=== PATIENT | female | born 1970 | race Caucasian/White ===

== ENCOUNTER 2024-03-30 10:23 | Outpatient (OUT) | payer BC, SELFPAY ==
--- NOTE | 2024-03-30 10:34 | MM_ITS ---
Patient Name: MARIBELL RAMIREZ MR#: [id number] : 1970 Exam Date: 03/30/2024 Ordering Doctor: BHAVANA CARR . RADIOLOGY REPORT PROCEDURE: MM TOMOSYNTHESIS SCREENING BI COMPARISON: MG MAMM SCREEN 3D ERIC CAD, 03/20/2022. MG MAMM SCREEN 3D ERIC CAD, 03/23/2023. INDICATIONS: Screening Calculator Name NCI Breast Cancer Risk Assessment Tool 5 Year Breast Cancer Risk 2.50% Lifetime Breast Cancer Risk 17.60% Personal Breast Cancer No Personal Ovarian Cancer No Treatments None Family Cancers Mother with breast cancer at age 57; Grandmother-maternal with breast cancer at age ~60. LOCATION: [facility] BREAST COMPOSITION: The breasts are heterogeneously dense,which may obscure small masses. FINDINGS: DIAGNOSTIC CATEGORY 2--BENIGN FINDING. NO CHANGE FROM COMPARISON. Scattered benign-appearing calcifications are present. Scattered benign-appearing lymph nodes are present. RIGHT BREAST: No significant suspicious finding. LEFT BREAST: No significant suspicious finding. RECOMMENDATIONS: ROUTINE MAMMOGRAM AND CLINICAL EVALUATION IN 12 MONTHS. PLEASE NOTE: A NORMAL MAMMOGRAM DOES NOT EXCLUDE THE POSSIBILITY OF BREAST CANCER. A CLINICALLY SUSPICIOUS PALPABLE LUMP SHOULD BE BIOPSIED. Dictated by: Dakota Lin MD on 03/30/2024 at 13:07 Approved by: Daokta Lin MD on 03/30/2024 at 13:08
== END 2024-03-30 10:24 | disposition home or self-care (01) ==
LOC: MAMMO 10:26
PROVIDERS: PCP Nurse Practitioner; Visit Provider Nurse Practitioner
DX: Z12.31 Encounter for screening mammogram for malignant neoplasm of breast (principal); Z80.3 Family history of malignant neoplasm of breast
CPT/HCPCS: 77063; 77067

== ENCOUNTER 2025-05-04 13:06 | Outpatient (OUT) | payer OTHER, SELFPAY ==
--- NOTE | 2025-05-04 | MM_ITS ---
Patient Name: MARIBELL RAMIREZ MR#: [id number] : 1970 Exam Date: 05/04/2025 Ordering Doctor: BHAVANA CARR . RADIOLOGY REPORT PROCEDURE: MM TOMOSYNTHESIS SCREENING BI COMPARISON: MM TOMOSYNTHESIS SCREENING BI, 03/30/2024. MG MAMM SCREEN 3D ERIC CAD, 03/23/2023. MG MAMM SCREEN 3D ERIC CAD, 03/20/2022. MG MAMM ERIC SCRN W CAD DIG, 01/31/2016. INDICATIONS: Screening Calculator Name NCI Breast Cancer Risk Assessment Tool 5 Year Breast Cancer Risk 2.60% Lifetime Breast Cancer Risk 17.30% Personal Breast Cancer No Personal Ovarian Cancer No Treatments None Family Cancers Mother with breast cancer at age 57; Grandmother-maternal with breast cancer at age ~60. LOCATION: [facility] BREAST COMPOSITION: There are scattered areas of fibroglandular density. FINDINGS: DIAGNOSTIC CATEGORY 1--NEGATIVE. RIGHT BREAST: No significant suspicious finding. LEFT BREAST: No significant suspicious finding. RECOMMENDATIONS: ROUTINE MAMMOGRAM AND CLINICAL EVALUATION IN 12 MONTHS. PLEASE NOTE: A NORMAL MAMMOGRAM DOES NOT EXCLUDE THE POSSIBILITY OF BREAST CANCER. A CLINICALLY SUSPICIOUS PALPABLE LUMP SHOULD BE BIOPSIED. Dictated by: Cheikh Alonzo DO on 05/04/2025 at 15:42 Approved by: Cheikh Alonzo DO on 05/04/2025 at 15:43
--- OUTSIDE RECORDS SUMMARY | 2025-05-04 13:21 | XMS_ITS | CCD ---
Author Organization [facility] CliniSyri Care Team Providers Care Patient Access Manager Name Role Phone ODALIS, DR PANDA Admitting Unavailable KARASIK, DR PANDA Attending Unavailable MATTHEWS, DR SWETHA Mustafa Primary Care Unavailable KARASIK, DR PANDA Consulting Unavailable MATTHEWS, DR SWETHA Mustafa Admitting Unavailable MATTHEWS, DR SWETHA Mustafa Attending Unavailable MATTHEWS, DR SWETHA Mustafa Primary Care Unavailable MATTHEWS, DR SWETHA Mustafa Consulting Unavailable KARASIK, DR PANDA Admitting Unavailable KARASIK, DR PANDA Attending Unavailable MATTHEWS, DR SWETHA Mustafa Primary Care Unavailable KARASIK, DR PANDA Consulting Unavailable WEST, DR LLOYD Wahl Consulting Unavailable ZIEBER, DR TREVOR Erwin Consulting Unavailable MATTHEWS, SWETHA Mustafa Primary Care Physician Lloyd Watts Attending Unavailable HyLloyd maldonado Admitting Unavailable MatthewsSwetha Primary Care Unavailable Heidi, Dixie Roy Primary Care Physician [phone] Heidi, Dixie Roy Attending Unavailable Heidi, Dixie L Admitting Unavailable Heidi, Dixie L Admitting Unavailable Heidi, Dixie Roy Attending Unavailable Heidi, Dixie Roy Attending Unavailable Heidi, Dixie L Admitting Unavailable Heidi, Dixie Roy Attending Unavailable Heidi, Dixie L Attending Unavailable Heidi, Dixie L Attending Unavailable Heidi, Dixie L Admitting Unavailable Heidi, Dixie L Attending Unavailable Heidi, Dixie L Attending Unavailable Heidi, SEWING MACHINE REPAIRER Dixie L Admitting Unavailable Heidi, SEWING MACHINE REPAIRER Dixie L Attending Unavailable Heidi, SEWING MACHINE REPAIRER Dixie L Admitting Unavailable Heidi, SEWING MACHINE REPAIRER Dixie L Attending Unavailable Heidi, SEWING MACHINE REPAIRER Dixie L Attending Unavailable Allergies Allergy Classification Reported Allergen(s) Allergy Type Date of Onset Reaction(s) Facility (5 sources) No Known Medication Allergies; Translations: [No Known Medication Allergies] Propensity to adverse reactions (disorder) [facility] Repository Medications Current Medications Medication Drug Class(es) Dates Sig (Normalized) Sig (Original) black cohosh extract 40 mg oral capsule (2 sources) Start: 03-01-2019 take 40 mg by mouth once daily Black Cohosh Black Cohosh, 40 mg, Oral, Daily Start Date: 03/01/19 Status: Ordered famotidine 40 mg oral tablet (2 sources) Histamine-2 Receptor Antagonist Start: 02-10-2023 take 1 tablet by mouth once daily famotidine 40 mg Tab 40 mg = 1 tab(s), Oral, Daily, Refills(s) 0 Start Date: 02/10/23 Status: Ordered folic acid 1 mg oral tablet (1 source) Start: 07-12-2024 take 1 tablet by mouth once daily folic acid 1 mg Tab 1 mg = 1 tab(s), Oral, Daily, # 90 tab(s), Refills(s) 0, Pharmacy: [facility], 158.5, cm, 07/05/24 11:30:00 EDT, Height/Length Dosing, 71.7, kg, 07/05/24 11:30:00 EDT, Weight Dosing Start Date: 07/12/24 Status: Ordered levothyroxine sodium 0.088 mg oral tablet (7 sources) l-Thyroxine Start: 01-03-2025 take 1 tablet by mouth once daily levothyroxine 88 mcg (0.088 mg) Tab See Instructions, TAKE 1 TABLET BY MOUTH EVERY DAY, # 90 tab(s), Refills(s) 3, Pharmacy: [facility], 158, cm, 10/11/24 11:25:00 EST, Height/Length Dosing, 65.6, kg, 10/11/24 11:25:00 EST, Weight Dosing Start Date: 01/03/25 Status: Ordered Quantity: 90.0 Unit: tab(s) Repeat number: 4 Start: 10-10-2024 take 1 tablet by bony once daily levothyroxine 88 mcg (0.088 mg) Tab See Instructions, TAKE 1 TABLET BY MOUTH EVERY DAY, # 90 tab(s), Refills(s) 0, Pharmacy: [facility], 158.5, cm, 08/02/24 15:35:00 EDT, Height/Length Dosing, 69.3, kg, 08/02/24 15:35:00 EDT, Weight Dosing Start Date: 10/10/24 Status: Ordered Start: 09-28-2023 End: 09-22-2024 take 1 capsule by mouth once daily levothyroxine 88 mcg (0.088 mg) oral capsule 88 mcg = 1 cap(s), Oral, Daily, X 90 day(s), # 90 cap(s), Refills(s) 3, Pharmacy: [facility], 158.5, cm, 02/12/23 13:49:00 EDT, Height/Length Dosing, 71.2, kg, 02/12/23 13:49:00 EDT, Weight Dosing Start Date: 09/28/23 Stop Date: 09/22/24 Status: Ordered Start: 02-16-2023 take 1 capsule by mo [facility] once daily levothyroxine 88 mcg (0.088 mg) oral capsule 88 mcg = 1 cap(s), Oral, Daily, # 30 cap(s), Refills(s) 1, Pharmacy: [facility], 158.5, cm, 02/12/23 13:49:00 EDT, Height/Length Dosing, 71.2, kg, 02/12/23 13:49:00 EDT, Weight Dosing Start Date: 02/16/23 Status: Ordered Start: 02-11-2023 take 1 tablet by bony once daily levothyroxine 100 mcg (0.1 mg) Tab 100 mcg, Oral, Daily, # 30 tab(s), Refills(s) 0, Pharmacy: [facility] Start Date: 02/11/23 Status: Ordered Start: 05-31-2021 take 100 ug by mouth once erica y Levothyroxine Active 100 MCG PO Daily May 31, 2021 12:00am meclizine hydrochloride 25 mg oral tablet (1 source) Antiemetic Start: 05-31-2021 Meclizine Acti ve 25 MG PO As Directed May 31, 2021 12:00am naproxen 500 mg oral tablet (4 sources) Nonsteroidal Anti-inflammatory Drug Start: 03-01-2019 take 500 mg by mouth every twelve hours naproxen 500 mg, Oral, q12hr, Refills(s) 0 Start Date: 03/01/19 Status: Ordered Start: 03-01-2019 take 2 capsules by m outh every twelve hours as needed for pain Aleve 220 mg oral capsule 440 mg = 2 cap(s), Oral, q12hr, PRN as needed for pain, Refills(s) 0 Start Date: 03/01/19 Status: Ordered SEMAGLUTIDE 1 MG/ML VIAL (2 sources) Start: 07-29-2024 inject 1 mg by subcutaneous injection every week SEMAGLUTIDE 1 MG/ML VIAL SEMAGLUTIDE 1 MG/ML VIAL, INJECT 25 UNITS (0.25MG) SUB-Q ONCE WEEKLY ON THE SAME DAY Start Date: 07/29/24 Status: Ordered Repeat number: 1 Start: 07-29-2024 inject 1 mg by subcu taneous injection every week SEMAGLUTIDE 1 MG/ML VIAL SEMAGLUTIDE 1 MG/ML VIAL, INJECT 25 UNITS (0.25MG) SUB-Q ONCE WEEKLY ON THE SAME DAY Start Date: 07/29/24 Status: Ordered sertraline 25 mg oral tablet (7 sources) Serotonin Reuptake Inhibitor Start: 01-03-2025 take 1 tablet by mouth in the morning sertraline 25 mg Tab See Instructions, TAKE 1 TABLET BY MOUTH IN THE MORNING, # 90 tab(s), Refills(s) 3, , Pharmacy: [facility], 158, cm, 10/11/24 11:25:00 EST, Height/Length Dosing, 65.6, kg, 10/11/24 11:25:00 EST, Weight Dosing Start Date: 01/03/25 Status: Ordered Quantity: 90.0 Unit: tab(s) Repeat number: 4 Start: 09-28-2024 take 1 tablet by bony th in the morning sertraline 25 mg Tab See Instructions, TAKE 1 TABLET BY MOUTH IN THE MORNING, # 90 tab(s), Refills(s) 0, , Pharmacy: [facility], 158.5, cm, 08/02/24 15:35:00 EDT, Height/Length Dosing, 69.3, kg, 08/02/24 15:35:00 EDT, Weight Dosing Start Date: 09/28/24 Status: Ordered Start: 09-28-2023 End: 09-22-2024 take 1 tablet by mouth once daily in the morning sertraline 25 mg Tab 25 mg, Oral, qAM, X 90 day(s), # 90 tab(s), Refills(s) 3, CHRISTOPHER, Pharmacy: [facility], 158.5, cm, 02/12/23 13:49:00 EDT, Height/Length Dosing, 71.2, kg, 02/12/23 13:49:00 EDT, Weight Dosing Start Date: 09/28/23 Stop Date: 09/22/24 Status: Ordered Start: 05-31-2021 take 1 tablet by bony once daily in the morning sertraline 25 mg Tab 25 mg, Oral, qAM, # 90 tab(s), Refills(s) 0, Pharmacy: [facility], 158.5, cm, 02/12/23 13:49:00 EDT, Height/Length Dosing, 71.2, kg, 02/12/23 13:49:00 EDT, Weight Dosing Start Date: 02/27/23 Status: Ordered Problems Active Problems Problem Classification Problem Date Documented Date Episodic/Chronic Anxiety disorders (6 sources) Anxiety 02-28-2019 Chronic Conditions associated with dizziness or vertigo (6 sources) Labyrinthitis 02-28-2019 Episodic Esophageal disorders (6 sources) Gastroesophageal reflux disease 02-28-2019 Chronic Headache; including migraine (6 sources) Migraine 02-28-2019 Chronic Immunizations and screening for infectious disease (1 source) Encounter for screening for human papillomavirus (HPV); Translations: [ENC SCREENING HUMAN PAPILLOMAVIRUS] Onset: 10-18-2022 Episodic Other nutritional; endocrine; and metabolic disorders (4 sources) Overweight 06-27-2024 Episodic Other nutritional; endocrine; and metabolic disorders (2 sources) Body mass index 25-29 - overweight 10-11-2024 Episodic Other nutritional; endocrine; and metabolic disorders (2 sources) Overweight in adulthood with body mass index of 25 or more but less than 30 10-11-2024 Episodic Other skin disorders (6 sources) Asteatosis cutis 02-28-2019 Episodic Residual codes; unclassified (6 sources) Flushing 02-28-2019 Episodic Sexually transmitted infections (not HIV or hepatitis) (2 sources) Low risk human papillomavirus deoxyribonucleic acid test positive in specimen from vagina 10-11-2024 Episodic Substance-related disorders (6 sources) Smoker 03-01-2019 Chronic Comment on above: Added secondary to d ocumentation in Social History. Thyroid disorders (10 sources) Hypothyroidism, unspecified; Translations: [Hypothyroidism] Onset: 12-17-2021 Chronic Unclassified (1 source) Z12.11 - Encounter for screening for malignant neoplasm of colon; Translations: [Z12.11 - Encounter for screening for malignant neoplasm of colon] Onset: 05-31-2021 Unclassified (10 sources) Patient encounter status 06-27-2024 Unclassified (3 sources) Cancer cervix screening status 07-05-2024 Unclassified (2 sources) Vaping 10-11-2024 Unclassified (1 source) Body mass index 20-24 - normal 04-13-2025 Past or Other Problems Problem Classification Problem Date Documented Da te Episodic/Chronic Other screening for suspected conditions (not mental disorders or infectious disease) (10 sources) Encounter for screening for malignant neoplasm of cervix; Translations: [Encounter for screening mammogram for malignant neoplasm of breast] Onset: 05-31-2021 Episodic Residual codes; unclassified (1 source) Asymptomatic menopausal state; Translations: [ASYMPTOMATIC MENOPAUSAL STATE] Onset: 03-26-2022 Episodic Residual codes; unclassified (1 source) Family history of malignant neoplasm of breast; Translations: [FAMILY HX MALIG NEOPLASM OF BREAST] Onset: 03-26-2022 Episodic Results Test Name Value Interpretation Reference Range Facility PAP [id number] 04-18-2025 HPV Aptima Negative Invalid Interpretation Code Negative [facility] Comment on above: Result Comment: This nucleic acid amplification test detects fourteen high-risk HPV types (16,18,31,33,35,39,45,51,52,56,58,59,66,68) without differentiation. Performed at: [facility] [address] [place], [place] [id number] MD Lisa Odom Performed at: [facility] [address] [place], [place] [id number] MD Lisa Odom Performed By: #### 1 [id number] #### [facility] [address] [place] [address] PAP Note Invalid Interpretation Code [facility] Comment on above: Result Comment: TEST S RESULT FLAG UNITS REF RANGE LAB Clinician Provided Cytology Information Source.............Endocervix No. of containers..01 ThinPrep Vial DIAGNOSIS: 01 NEGATIVE FOR INTRAEPITHELIAL LESION OR MALIGNANCY. Specimen adequacy: 01 Satisfactory for evaluation. Endocervical and/or squamous metaplastic cells (endocervical component) are present. Performed by: 01 Marlyn Zarate Commercial Plumber ([facility]) . 01 Note: Note 01 The Pap smear is a screening test designed to aid in the detection of premalignant and malignant conditions of the uterine cervix. It is not a diagnostic procedure and should not be used as the sole means of detecting cervical cancer. Both false-positive and false-negative reports do occur. Test Methodology: Note 01 This liquid based ThinPrep(R) pap test was screened with the use of an image guided system. HPV Genotype Reflex Note 01 Criteria not met, HPV Genotype not performed. FLAG LEGEND: L-Low Normal,H-High Normal,LL-Alert Low,HH-Alert High <-Panic Low,>-Panic High,A-Abnormal,AA-Critical Abnormal Performed at: [address] [facility] [id number] Ilene Gonzalez MD, Performed By: #### 1 [id number] #### [facility] [address] [place] [address] Medicine Office/Clini c Noteon 04-13-2025 Family Medicine Office/Clinic Note Family Medicine Office/Clinic Note HPI Staff Pt is here fo 6mth repeat PAP. DUE:Colonscopy/Diabe crissy screening Woman check up Last pap: 10/11/24 Results of lap pap: HPV Positive Where was it done: [facility] Hx of Hysterectomy: no hx: # of pregnancies 4 abortions 2 live births 2 living children 2 Vaginal discharge, odor, itching: no Self breast exam at home? yes Last Mammogram: 2023 Hx of breast, cervical or uterine cancer in the family: maternal hx of breast cancer History of STD: none Do you want tested for STD today: no History of Present Illness pt presents today for repeat pap test Review of Systems PHQ Score Initial Depression Screen Score: 0 SCORE Physical Exam Vitals & Measurements T: 36.9 ???C(Temporal Artery) HR: 78(Peripheral) RR: 18 BP: 118/76 HT: 62 in HT: 158 cm WT: 134.702 lb WT: 61.1 kg BMI: 24.48 General: alert, no acute distress ENMT: oral mucosa moist, no pharyngeal erythema or exudate Cardiovascular: regular rate and rhythm, normal peripheral perfusion Respiratory: Lungs CTA, respirations non labored Extremities: no deformity, no trauma Neurological: oriented x 4, LOC appropriate for age, CN II-XII intact, motor strength equal & normal bilaterally, speech normal Assessment/Plan 1. Pap smear for cervical cancer screening (Z12.4: Encounter for screening for malignant neoplasm of cervix) pt presents today for repeat pap. In July was Positive for HPV. Repeat in October was negative. Will repeat pap today. all questions answered. RTC 3 months Ordered: PAP w/ HPV and Genotype rflx 2. BMI 24.0-24.9, adult (Z68.24: Body mass index [BMI] 24.0-24.9, adult) BMI education given Ordered: PAP w/ HPV and Genotype rflx 3. Smoker (F17.200: Nicotine dependence, unspecified, uncomplicated) consider not smoking Orders: folic acid, 1 mg = 1 tab(s), Oral, Daily, # 90 tab(s), Refills(s) 0, Pharmacy: [facility], 158.5, cm, 07/05/24 11:30:00 EDT, Height/Length Dosing, 71.7, kg, 07/05/24 11:30:00 EDT, Weight Dosing Follow-up No qualifying data available Problem List/Past Medical History Ongoing Anxiety BMI 24.0-24.9, adult BMI 26.0-26.9,adult Cervical cancer screening Encounter for weight management Engages in vaping GERD (gastroesophageal reflux disease) Hot flashes Hypothyroidism Labyrinthitis Migraines Overweight Overweight (BMI 25.0-29.9) Pap smear for cervical cancer screening Smoker Vaginal low risk HPV DNA test positive Well woman exam Wellness examination Xerosis cutis Historical No qualifying data Procedure/Surgical History Epidural injection of cervical spine using fluoroscopic guidance (03/14/2019), Colonoscopy, Endometrial ablation, Reconstruction of left ankle, Tubal ligation. Medications levothyroxine 88 mcg (0.088 mg) Tab, See Instructions, 3 refills SEMAGLUTIDE 1 MG/ML VIAL, Still taking, not as prescribed: [facility] no longer dispenses medication sertraline 25 mg Tab, See Instructions, 3 refills Allergies No Known Allergies No Known Medication Allergies Social History Alcohol Current. Beer, Wine, Liquor. 1-2 times per week., 10/10/2024 Substance Abuse Never., 10/10/2024 Tobacco Former smoker, quit more than 30 days ago Tobacco Use:. Current vaping or e-cigarette use Smokeless Tobacco Use:. Cigarettes, Vaping, Household tobacco concerns: No. Yes, 04/13/2025 Family History Primary malignant neoplasm of female breast: Mother. Immunizations Vaccine Date Status Comments zoster vaccine, inactivated 08/16/2024 Recorded influenza virus vaccine, inactivated 08/16/2024 Recorded influenza virus vaccine, inactivated 09/02/2023 Recorded influenza virus vaccine, inactivated 08/11/2022 Recorded SARS-CoV-2 (COVID-19) [id number] 08/11/2022 Recorded SARSCoV2 mRNA(tozinamer-camryn- sucros) vac 02/19/2022 Recorded influenza virus vaccine, inactivated 09/10/2021 Recorded SARS-CoV-2 (COVID-19) mRNA BNT-162b2 vax 09/10/2021 Recorded 2023-02-12: TPV50 SARS-CoV-2 (COVID-19) mRNA-1273 vaccine 11/21/2020 Recorded SARS-CoV-2 (COVID-19) mRNA-1273 vaccine 10/24/2020 Recorded influenza virus vaccine, inactivated 08/16/2020 Recorded influenza virus vaccine, inactivated 08/25/2019 Recorded influenza virus vaccine, inactivated 07/26/2018 Recorded influenza virus vaccine, inactivated 11/24/2013 Recorded influenza virus vaccine, inactivated 10/19/2012 Recorded Normal [facility] Comment on above: Result Comment: Elec tronically Signed By: Dixie Whittaker\Date and Time Signed: 04/13/25 13:57 EDT PAP 04-13-2025 Gynecological Body Site ENDOCERVIX Normal [facility] Comment on above: Performed By: #### 1 [id number] #### [facility] [address] [place] [address] PAP 10-18-2024 Cytology report Cyto stain Doc (Cvx/Vag) Note Invalid Interpretation Code [facility] Comment on above: Result Comment: TEST S RESULT FLAG UNITS REF RANGE LAB Clinician Provided Cytology Information Source.............Cervix No. of containers..01 ThinPrep Vial DIAGNOSIS: 01 NEGATIVE FOR INTRAEPITHELIAL LESION OR MALIGNANCY. Specimen adequacy: 01 Satisfactory for evaluation. Endocervical and/or squamous metaplastic cells (endocervical component) are present. Performed by: Natalia Osborne, Employee Relations Representative ([employer]) . 01 Note: Note 01 The Pap smear is a screening test designed to aid in the detection of premalignant and malignant conditions of the uterine cervix. It is not a diagnostic procedure and should not be used as the sole means of detecting cervical cancer. Both false-positive and false-negative reports do occur. Test Methodology: Note 01 This liquid based ThinPrep(R) pap test was screened with the use of an image guided system. HPV Genotype Reflex Note 01 Criteria not met, HPV Genotype not performed. FLAG LEGEND: L-Low Normal,H-High Normal,LL-Alert Low,HH-Alert High <-Panic Low,>-Panic High,A-Abnormal,AA-Critical Abnormal Performed at: [address] [id number] Ilene Gonzalez MD, Performed By: #### 1 [id number] #### [facility] [address] [place] [address] HPV 16+18+31+33+35+39+45+ 51+52+56+58+59+66+68 DNA Probe+sig amp Ql (Cvx) Negative Invalid Interpretation Code Negative [facility] Comment on above: Result Comment: This nucleic acid amplification test detects fourteen high-risk HPV types (16,18,31,33,35,39,45,51,52,56,58,59,66,68) without differentiation. Performed at: [address] [id number] MD Lisa Odom Performed at: [address] [id number] MD Lisa Odom Performed By: #### 1 [id number] #### [facility] [address] [place] [address] Ambulatory Visit Summaryon 12-12-2023 Ambulatory Visit Summary Ambulatory Visit Summary LISHA RAMIREZ :1970 Visit Date:10/11/2024 Ambulatory Visit Instructions Your Diagnosis BMI 26.0-26.9,adult Overweight (BMI 25.0-29.9) Engages in vaping Your Care Team Attending Physician - Dixie Whittaker Primary Care Physician - Dixie Whittaker This Is Your Medications List Misc Prescription (SEMAGLUTIDE 1 MG/ML VIAL) folic acid (folic acid 1 mg Tab) levothyroxine (levothyroxine 88 mcg (0.088 mg) Tab) sertraline (sertraline 25 mg Tab) Procedures Performed Epidural injection of cervical spine using fluoroscopic guidance (03/14/2019), Colonoscopy, Endometrial ablation, Reconstruction of left ankle, Tubal ligation. Discharge Vitals Heart Rate (Peripheral) 72 Respiratory Rate 18 Blood Pressure 122/76 Height 158 cm Height 62 in Weight 65.6 kg Weight 144.623 lb BMI 26.28 Medications What How Much When Instructions Unchanged folic acid (folic acid 1 mg Tab) 1 Tablets By Mouth Every day Unchanged levothyroxine (levothyroxine 88 mcg (0.088 mg) Tab) See instructions TAKE 1 TABLET BY MOUTH EVERY DAY Unchanged Misc Prescription (SEMAGLUTIDE 1 MG/ ML VIAL) INJECT 25 UNITS (0.25MG) SUB-Q ONCE WEEKLY ON THE SAME DAY Unchanged sertraline (sertraline 25 mg Tab) See instructions TAKE 1 TABLET BY MOUTH IN THE MORNING Allergies No Known Medication Allergies Problems Ongoing - Any problem that you are currently receiving treatment for. Anxiety BMI 26.0-26.9,adult Cervical cancer screening Encounter for weight management Engages in vaping GERD (gastroesophageal reflux disease) Hot flashes Hypothyroidism Labyrinthitis Migraines Overweight Overweight (BMI 25.0-29.9) Smoker Well woman exam Wellness examination Xerosis cutis Patient Survey You may receive a survey via text or e-mail asking about your office visit. Please share your experience with us by completing your survey. We appreciate your feedback and thank you for choosing us for your care. Normal [facility] Family Medicine Office/Clini c Noteon 10-11-2024 Family Medicine Office/Clinic Note Family Medicine Office/Clinic Note Chief Complaint 3m repeat PAP HPI Staff Pt presents today for 3m repeat PAP Last pap: 07/05/24 Results of lap pap: + HPV Aptima Where was it done: [facility] [place] Started on folic acid History of Present Illness pt presents today for repeat pap Review of Systems PHQ Score Initial Depression Screen Score: 0 SCORE Physical Exam Vitals & Measurements HR: 72(Peripheral) RR: 18 BP: 122/76 SpO2: 96% HT: 62 in HT: 158 cm WT: 65.6 kg WT: 144.623 lb BMI: 26.28 General: alert, no acute distress ENMT: oral mucosa moist, no pharyngeal erythema or exudate Cardiovascular: regular rate and rhythm, normal peripheral perfusion Respiratory: Lungs CTA, respirations non labored Extremities: no deformity, no trauma Neurological: oriented x 4, LOC appropriate for age, CN II-XII intact, motor strength equal & normal bilaterally, speech normal RIB PULLER: cervix was red and friable, bleeding and tenderness noted when brush was used to obtain specimen Assessment/Plan 1. Vaginal low risk HPV DNA test positive (R87.821: Vaginal low risk human papillomavirus (HPV) DNA test positive) pap obtained without difficulty. cervix was red and friable when brush used to obtain specimen. pt has been taking folic acid. if this pap is abnormal will consider referral to Dr. Ayala for colposcopy. 2. Encounter for weight management (Z76.89: Persons encountering health services in other specified circumstances) down 8 pounds since starting [facility]lutide from [facility] 3. BMI 26.0-26.9,adult (Z68.26: Body mass index [BMI] 26.0-26.9, adult) BMI education given 4. Overweight (BMI 25.0-29.9) (E66.3: Overweight) see above 5. Engages in vaping (Z72.89: Other problems related to lifestyle) consider not vaping Orders: levothyroxine, See Instructions, TAKE 1 TABLET BY MOUTH EVERY DAY , # 90 tab(s), Refills(s) 0, Pharmacy: [facility], 158.5, cm, 08/02/24 15:35:00 EDT, Height/Length Dosing, 69.3, kg, 08/02/24 15:35:00 EDT, Weight Dosing Follow-up No qualifying data available Problem List/Past Medical History Ongoing Anxiety BMI 26.0-26.9,adult Cervical cancer screening Encounter for weight management Engages in vaping GERD (gastroesophageal reflux disease) Hot flashes Hypothyroidism Labyrinthitis Migraines Overweight Overweight (BMI 25.0-29.9) Smoker Vaginal low risk HPV DNA test positive Well woman exam Wellness examination Xerosis cutis Historical No qualifying data Procedure/Surgical History Epidural injection of cervical spine using fluoroscopic guidance (03/14/2019), Colonoscopy, Endometrial ablation, Reconstruction of left ankle, Tubal ligation. Medications folic acid 1 mg Tab, 1 mg= 1 tab(s), Oral, Daily levothyroxine 88 mcg (0.088 mg) Tab, See Instructions SEMAGLUTIDE 1 MG/ML VIAL sertraline 25 mg Tab, See Instructions Allergies No Known Medication Allergies Social History Alcohol Current. Beer, Wine, Liquor. 1-2 times per week., 10/10/2024 Substance Abuse Never., 10/10/2024 Tobacco Former smoker, quit more than 30 days ago Tobacco Use:. Current vaping or e-cigarette use Smokeless Tobacco Use:. Cigarettes, Vaping, Household tobacco concerns: No. Yes, 10/11/2024 Family History Primary malignant neoplasm of female breast: Mother. Immunizations Vaccine Date Status Comments zoster vaccine, inactivated 08/16/2024 Recorded influenza virus vaccine, inactivated 08/16/2024 Recorded influenza virus vaccine, inactivated 09/02/2023 Recorded influenza virus vaccine, inactivated 08/11/2022 Recorded SARS-CoV-2 (COVID-19) [id number].ORD![id number] 08/11/2022 Recorded SARSCoV2 mRNA(tozinamer-camryn- sucros) vac 02/19/2022 Recorded influenza virus vaccine, inactivated 09/10/2021 Recorded SARS-CoV-2 (COVID-19) mRNA BNT-162b2 vax 09/10/2021 Recorded 2023-02-12: TPV50 SARS-CoV-2 (COVID-19) mRNA-1273 vaccine 11/21/2020 Recorded SARS-CoV-2 (COVID-19) mRNA-1273 vaccine 10/24/2020 Recorded influenza virus vaccine, inactivated 08/16/2020 Recorded influenza virus vaccine, inactivated 08/25/2019 Recorded influenza virus vaccine, inactivated 07/26/2018 Recorded influenza virus vaccine, inactivated 11/24/2013 Recorded influenza virus vaccine, inactivated 10/19/2012 Recorded Normal [facility] Comment on above: Result Comment: Elec tronically Signed By: Dixie Whittaker\.br\Date and Time Signed: 10/11/24 12:15 EST PAP [id number] 10-11-2024 Gynecological Body Site CERVIX Normal [facility] Comment on above: Performed By: #### 1 [id number] #### [facility] [address] [place] [address] Ambulatory Visit Summaryon 1 Ambulatory Visit Summary Ambulatory Visit Summary LISHA RAMIREZ :1970 Visit Date:08/02/2024 Ambulatory Visit Instructions Your Diagnosis Encounter for weight management Former smoker BMI 27.0-27.9,adult Your Care Team Attending Physician - Dixie Whittaker Primary Care Physician - Dixie Whittaker This Is Your Medications List Misc Prescription (SEMAGLUTIDE 1 MG/ML VIAL) folic acid (folic acid 1 mg Tab) levothyroxine (levothyroxine 88 mcg (0.088 mg) oral capsule) sertraline (sertraline 25 mg Tab) Procedures Performed Epidural injection of cervical spine using fluoroscopic guidance (03/14/2019), Colonoscopy, Endometrial ablation, Reconstruction of left ankle, Tubal ligation. Discharge Vitals Temperature (Temporal Artery) 36.6 ?C Heart Rate (Peripheral) 88 Respiratory Rate 18 Blood Pressure 124/78 Height 158.5 cm Height 62 in Weight 69.3 kg Weight 152.46 lb BMI 27.59 What to do next Scheduled Follow-Up Appointments Thursday 11:20 AM EST With: Dixie Whittaker Where: [facility] [place] [id number]- Medications What How Much When Why Instructions Unchanged folic acid (folic acid 1 mg Tab) 1 Tablets By Mouth Every day Unchanged levothyroxine (levothyroxine 88 mcg (0.088 mg) oral capsule) 1 Capsules By Mouth Every day Duration: 90 Days Unchanged Misc Prescription (SEMAGLUTIDE 1 MG/ ML VIAL) INJECT 25 UNITS (0.25MG) SUB-Q ONCE WEEKLY ON THE SAME DAY Unchanged sertraline (sertraline 25 mg Tab) 25 Milligram By Mouth Once a day (in the morning) Accidental overdose of centrally-acting appetite depressant Duration: 90 Days Allergies No Known Medication Allergies Problems Ongoing - Any problem that you are currently receiving treatment for. Anxiety Cervical cancer screening Encounter for weight management GERD (gastroesophageal reflux disease) Hot flashes Hypothyroidism Labyrinthitis Migraines Overweight Smoker Well woman exam Wellness examination Xerosis cutis Patient Survey You may receive a survey via text or e-mail asking about your office visit. Please share your experience with us by completing your survey. We appreciate your feedback and thank you for choosing us for your care. Ronan [facility] Family Medicine Office/Clini c Noteon 08-02-2024 Family Medicine Office/Clinic Note Family Medicine Office/Clinic Note HPI Staff Lisha is a 53 year year old female presenting with wanting a dose increase for Semaglutide No side effects with this Her weight today was Weight today- 152.46 History of Present Illness pt presents today for weight managemetn Review of Systems PHQ Score Initial Depression Screen Score: 0 SCORE Physical Exam Vitals & Measurements T: 36.6 ?C(Temporal Artery) HR: 88(Peripheral) RR: 18 BP: 124/78 SpO2: 97% HT: 62 in HT: 158.5 cm WT: 69.3 kg WT: 152.46 lb BMI: 27.59 General: alert, no acute distress ENMT: oral mucosa moist, no pharyngeal erythema or exudate Cardiovascular: regular rate and rhythm, normal peripheral perfusion Respiratory: Lungs CTA, respirations non labored Extremities: no deformity, no trauma Neurological: oriented x 4, LOC appropriate for age, CN II-XII intact, motor strength equal & normal bilaterally, speech normal Assessment/Plan 1. Encounter for weight management (Z76.89: Persons encountering health services in other specified circumstances) pt is down 5 pounds. doing well denies side effects. will increase dose. order [facility] to [facility] (2nd dose) 2. Former smoker (Z87.891: Personal history of nicotine dependence) continue not smoking 3. BMI 27.0-27.9,adult (Z68.27: Body mass index [BMI] 27.0-27.9, adult) BMI education given Follow-up No qualifying data available Problem List/Past Medical History Ongoing Anxiety Cervical cancer screening Encounter for weight management GERD (gastroesophageal reflux disease) Hot flashes Hypothyroidism Labyrinthitis Migraines Overweight Smoker Well woman exam Wellness examination Xerosis cutis Historical No qualifying data Procedure/Surgical History Epidural injection of cervical spine using fluoroscopic guidance (03/14/2019), Colonoscopy, Endometrial ablation, Reconstruction of left ankle, Tubal ligation. Medications folic acid 1 mg Tab, 1 mg= 1 tab(s), Oral, Daily levothyroxine 88 mcg (0.088 mg) oral capsule, 88 mcg= 1 cap(s), Oral, Daily, 3 refills SEMAGLUTIDE 1 MG/ML VIAL sertraline 25 mg Tab, 25 mg, Oral, qAM, 3 refills Allergies No Known Medication Allergies Social History Alcohol Current, 1-2 times per week, 03/01/2019 Tobacco Former smoker, quit more than 30 days ago, quit 2020 Tobacco Use:. Current vaping or e-cigarette use Smokeless Tobacco Use:. Vaping, 25 year(s). Yes, 08/02/2024 Family History Primary malignant neoplasm of female breast: Mother. Immunizations Vaccine Date Status Comments influenza virus vaccine, inactivated 09/02/2023 Recorded influenza virus vaccine, inactivated 08/11/2022 Recorded SARS-CoV-2 (COVID-19) mRNAMUL.[id number] 08/11/2022 Recorded SARSCoV2 mRNA(tozinamer-camryn- sucros) vac 02/19/2022 Recorded influenza virus vaccine, inactivated 09/10/2021 Recorded SARS-CoV-2 (COVID-19) mRNA BNT-162b2 vax 09/10/2021 Recorded 2023-02-12: TPV50 SARS-CoV-2 (COVID-19) mRNA-1273 vaccine 11/21/2020 Recorded SARS-CoV-2 (COVID-19) mRNA-1273 vaccine 10/24/2020 Recorded influenza virus vaccine, inactivated 08/16/2020 Recorded influenza virus vaccine, inactivated 08/25/2019 Recorded influenza virus vaccine, inactivated 07/26/2018 Recorded influenza virus vaccine, inactivated 11/24/2013 Recorded influenza virus vaccine, inactivated 10/19/2012 Recorded Normal [facility] Comment on above: Result Comment: Elec tronically Signed By: Dixie Whittaker\.br\Date and Time Signed: 08/02/24 15:49 EDT HPV Genotypes 16/18,45on HPV 16 DNA Probe+sig amp Ql (Cvx) Negative Invalid Interpretation Code Negative [facility] Comment on above: Performed By: #### 1 [id number] #### [facility] [address] [place] [address] HPV 18+45 E6+E7 mRNA ANGEL+probe Ql (Cvx) Negative Invalid Interpretation Code Negative [facility] Comment on above: Result Comment: Perf ormed at: =G [facility] [address] HELEN Aguilera [id number] MD Lisa Odom Performed By: #### 1 [id number] #### [facility] [address] [place] [address] PAP 07-09-2024 Cytology report Cyto stain Doc (Cvx/Vag) Note Invalid Interpretation Code [facility] Comment on above: Result Comment: TEST S RESULT FLAG UNITS REF RANGE LAB Clinician Provided Cytology Information Source.............Endocervix No. of containers..01 ThinPrep Vial DIAGNOSIS: 01 NEGATIVE FOR INTRAEPITHELIAL LESION OR MALIGNANCY. CELLULAR CHANGES ASSOCIATED WITH ATROPHY ARE PRESENT. Specimen adequacy: 01 Satisfactory for evaluation. Endocervical component may not be distinguished in cases of atrophy. Performed by: Natalia Perez, Employee Relations Representative ([facility]) . 01 Note: Note 02 The Pap smear is a screening test designed to aid in the detection of premalignant and malignant conditions of the uterine cervix. It is not a diagnostic procedure and should not be used as the sole means of detecting cervical cancer. Both false-positive and false-negative reports do occur. Test Methodology: Note 02 This liquid based ThinPrep(R) pap test was screened with the use of an image guided system. HPV Genotype Reflex Note 01 Criteria met, see HPV Genotype results. FLAG LEGEND: L-Low Normal,H-High Normal,LL-Alert Low,HH-Alert High <-Panic Low,>-Panic High,A-Abnormal,AA-Critical Abnormal Performed at: 01 [facility] [address] [place] [address] Meet Jones MD, [address] [id number] Ilene Gonzalez MD, Performed By: #### 1 [id number] #### [facility] [address] [place] [address] HPV 16+18+31+33+35+39+45+ 51+52+56+58+59+66+68 DNA Probe+sig amp Ql (Cvx) Positive Abnormal Negative [facility] Comment on above: Result Comment: This nucleic acid amplification test detects fourteen high-risk HPV types (16,18,31,33,35,39,45,51,52,56,58,59,66,68) without differentiation. Performed at: [facility] [address] [address] [place], [place] [id number] MD Robert Dsouza Performed at: =G [facility] [id number] MD Lisa Odom Performed By: #### 1 [id number] #### [facility] [address] [place] [address] Family Medicine Office/Clini c Noteon 07-05-2024 Family Medicine Office/Clinic Note Family Medicine Office/Clinic Note HPI Staff Pt presents today for well woman exam. Woman check up: Last pap: 2022 Results of lap pap: normal Where was it done: With [facility] hx: # of pregnancies... abortions... live births... living children... menstrual cycle (normal,heavy,ect): History of STD: no Do you want tested for STD today: no Vaginal discharge, odor, itching: no Self breast exam at home? she does a form of this every day Hx of breast, cervical or uterine cancer in the family: History of Present Illness pt presents today for well woman exam Review of Systems PHQ Score Initial Depression Screen Score: 0 SCORE Physical Exam Vitals & Measurements T: 36.7 ?C(Temporal Artery) HR: 70(Peripheral) RR: 19 BP: 124/86 SpO2: 98% HT: 62 in HT: 158.5 cm WT: 71.70 kg WT: 157.74 lb BMI: 28.54 General: Well developed, well nourished, in no acute distress Neck: Neck supple. No masses or palpable cervical nodes. Trachea midline. Thyroid without nodules, masses, tenderness, or enlargement Breast: No mass, nodule, discharge, or erythema bilaterally, and no axillary lymphadenopathy Lungs: Normal respiratory effort and clear to auscultation Cardio: Regular rate and rhythm, normal S1 and S2, no murmur, no rub Abdomen: Soft, non-distended, non-tender, normal bowel sounds x4 Gyno: normal external genitalia. Urethra no discharge. Vagina normal without lesions, no vaginal discharge. Cervix normal, without lesions. Uterus normal. No adnexal masses. Pap obtained Neurologic: Grossly normal Skin: [place], moist, no tenting Lymph Nodes: No cervical adenopathy, nodes normal Mental Status: Alert and oriented x3. Normal mood and affect Assessment/Plan 1. Well woman exam (Z01.419: Encounter for gynecological examination (general) (routine) without abnormal findings) pt presents today for well woman exam. BSE discussed. pap obtained without difficulty. reviewed mammogram results. will repeat in 1 year. pt would like to start on compound ozempic. will call with which pharmacy. RTC 4 weeks. Ordered: Est Preventative 40 to 64 years [address] PAP [id number] w/ HPV and Genotype rflx 2. Cervical cancer screening (Z12.4: Encounter for screening for malignant neoplasm of cervix) pap obtained Ordered: Est Preventative 40 to 64 years [address]453 PAP [id number] w/ HPV and Genotype rflx 3. Former smoker (Z87.891: Personal history of nicotine dependence) continue not smoking Ordered: Est Preventative 40 to 64 years 18260 PAP [id number] w/ HPV and Genotype rflx 4. BMI 28.0-28.9,adult (Z68.28: Body mass index [BMI] 28.0-28.9, adult) BMI education given Ordered: Est Preventative 40 to 64 years [address]2555 PAP [id number] w/ HPV and Genotype rflx 5. Excess weight (E66.3: Overweight) would like to start ozempic Ordered: Est Preventative 40 to 64 years 19221 PAP [id number] w/ HPV and Genotype rflx Follow-up No qualifying data available Problem List/Past Medical History Ongoing Anxiety Cervical cancer screening GERD (gastroesophageal reflux disease) Hot flashes Hypothyroidism Labyrinthitis Migraines Overweight Smoker Well woman exam Wellness examination Xerosis cutis Historical No qualifying data Procedure/Surgical History Epidural injection of cervical spine using fluoroscopic guidance (03/14/2019), Colonoscopy, Endometrial ablation, Reconstruction of left ankle, Tubal ligation. Medications levothyroxine 88 mcg (0.088 mg) oral capsule, 88 mcg= 1 cap(s), Oral, Daily, 3 refills sertraline 25 mg Tab, 25 mg, Oral, qAM, 3 refills Allergies No Known Medication Allergies Social History Alcohol Current, 1-2 times per week, 03/01/2019 Tobacco Former smoker, quit more than 30 days ago, quit 2020 Tobacco Use:. Current vaping or e-cigarette use Smokeless Tobacco Use:. Vaping, 25 year(s). Yes, 07/05/2024 Family History Primary malignant neoplasm of female breast: Mother. Immunizations Vaccine Date Status Comments influenza virus vaccine, inactivated 09/02/2023 Recorded influenza virus vaccine, inactivated 08/11/2022 Recorded SARS-CoV-2 (COVID-19) [id number].[id number] 08/11/2022 Recorded SARSCoV2 mRNA(veronica-camryn- sucros) vac 02/19/2022 Recorded influenza virus vaccine, inactivated 09/10/2021 Recorded SARS-CoV-2 (COVID-19) mRNA BNT-162b2 vax 09/10/2021 Recorded 2023-02-12: TPV50 SARS-CoV-2 (COVID-19) mRNA-1273 vaccine 11/21/2020 Recorded SARS-CoV-2 (COVID-19) mRNA-1273 vaccine 10/24/2020 Recorded influenza virus vaccine, inactivated 08/16/2020 Recorded influenza virus vaccine, inactivated 08/25/2019 Recorded influenza virus vaccine, inactivated 07/26/2018 Recorded influenza virus vaccine, inactivated 11/24/2013 Recorded influenza virus vaccine, inactivated 10/19/2012 Recorded Normal [facility] Comment on above: Result Comment: Elec tronically Signed By: Dixie Whittaker\Date and Time Signed: 07/05/24 12:50 EDT PAP [id number] 07-05-2024 Gynecological Body Site ENDOCERVIX Normal [facility] Comment on above: Performed By: #### 1 [id number] #### [facility] [address] [place] [address] CBC w/ Auto Diffon Basophils/100 WBC (Bld) 1.2 % Normal 0.0-2.0 [facility] Comment on above: Performed By: #### 2 [id number] #### [facility] [address] [place] [address] Basophils/Leukocytes Auto (Bld) [Pure # fraction] 0.1 E9/L Normal 0.0-0.2 [facility] Comment on above: Performed By: #### 2 [id number] #### [facility] [address] [place] [address] Eosinophils (Bld) [#/Vol] 0.1 E9/L Normal 0.0-0.5 [facility] Comment on above: Performed By: #### 2 [id number] #### [facility] [address] [place] [address] Eosinophils/100 WBC (Bld) 1.4 % Normal 0.0-8.0 [facility] Comment on above: Performed By: #### 2 [id number] #### [facility] [address] [place] [address] Erythrocyte distribution width (RBC) [Ratio] 17.3 % High 10.9-14.2 [facility] Comment on above: Performed By: #### 2 [id number] #### [facility] [address] [place] [address] Hematocrit (Bld) [Volume fraction] 38.2 % Normal 34.0-46.0 [facility] Comment on above: Performed By: #### 2 [id number] #### [facility] [address] [place] [address] Hemoglobin (Bld) [Mass/Vol] 12.3 g/dL Normal 12.0-16.0 [facility] Comment on above: Performed By: #### 2 [id number] #### [facility] [address] [place] [address] Lymphocytes (Bld) [#/Vol] 2.1 E9/L Normal 1.0-4.0 [facility] Comment on above: Performed By: #### 2 [id number] #### [facility] [address] [place] [address] Lymphocytes/100 WBC (Bld) 41.7 % Normal 14.0-50.0 [facility] Comment on above: Performed By: #### 2 [id number] #### [facility] [address] [place] [address] MCH (RBC) [Entitic mass] 27.5 pg Normal 27.0-34.0 [facility] Comment on above: Performed By: #### 2 [id number] #### [facility] [address] [place] [address] MCHC (RBC) [Mass/Vol] 32.2 g/dL Normal 31.4-36.0 [facility] Comment on above: Performed By: #### 2 [id number] #### [facility] [address] [place] [address] MCV (RBC) [Entitic vol] 85.5 fL Normal 80.0-100.0 [facility] Comment on above: Performed By: #### 2 [id number] #### [facility] [address] [place] [address] Monocytes (Bld) [#/Vol] 0.4 E9/L Normal 0.2-1.0 [facility] Comment on above: Performed By: #### 2 [id number] #### [facility] [address] [place] [address] Neutrophils (Bld) [#/Vol] 2.4 E9/L Normal 2.0-7.5 [facility] Comment on above: Performed By: #### 2 [id number] #### [facility] [address] [place] [address] Neutrophils/100 WBC (Bld) 48.0 % Normal 36.0-75.0 [facility] Comment on above: Performed By: #### 2 [id number] #### [facility] [address] [place] [address] Platelet mean volume (Bld) [Entitic vol] 9.8 fL Normal 6.4-10.8 [facility] Comment on above: Performed By: #### 2 [id number] #### [facility] [address] [place] [address] Platelets (Bld) [#/Vol] 238.0 E9/L Normal 150.0-500.0 [facility] Comment on above: Performed By: #### 2 [id number] #### [facility] [address] [place] [address] RBC (Bld) [#/Vol] 4.5 E12/L Normal 4.3-5.9 [facility] Comment on above: Performed By: #### 2 [id number] #### [facility] [address] [place] [address] WBC corrected for nucl RBC Auto (Bld) [#/Vol] 5.0 E9/L Normal 4.0-11.0 [facility] Comment on above: Performed By: #### 2 [id number] #### [facility] [address] [place] [address] CHEMISTRYOrdered By: SYSTEM SYSTEM on 06-27-2024 Albumin [Mass/Vol] 4.4 g/dL Normal 3.3 - 5.0 gm/dL [facility] Albumin/Globulin [Mass ratio] 1.5 {ratio} Normal 1.1 - 2.2 [facility] ALP [Catalytic activity/Vol] 78 [iU]/d Normal 21 - 98 Int._Unit/L [facility] ALT No additional P-5'-P [Catalytic activity/Vol] 12 [iU]/d Normal 6 - 46 Int._Unit/L [facility] Anion gap [Moles/Vol] 10 mmol/L Normal 6 - 16 mEq/L R [facility] AST [Catalytic activity/Vol] 18 [iU]/d Normal 5 - 43 Int._Unit/L [facility] Bilirubin [Mass/Vol] 0.3 mg/dL Normal 0.0 - 1 .1 mg/dL [facility] Calcium [Mass/Vol] 9.6 mg/dL Normal 8.9 - 11. 1 mg/dL [facility] Chloride [Moles/Vol] 106 mmol/L Normal 101 - 1 11 mmol/L [facility] Cholesterol [Mass/Vol] 224 mg/dL High 120 - 200 mg/dL [facility] Cholesterol in HDL [Mass/Vol] 81 mg/dL Invalid Interpretation Code [facility] Comment on above: Result Comment: '>= 60 LOW RISK' '<= 40 HIGH RISK' Cholesterol in LDL [Mass/Vol] 122 mg/dL Normal <=129mg/dL [facility] Cholesterol in VLDL [Mass/Vol] 29 mg/dL Normal 7 - 40 mg/dL [facility] CO2 [Moles/Vol] 27 mmol/L Normal 21 - 31 mmol/L [facility] Creatinine [Mass/Vol] 0.9 mg/dL Normal 0.5 - 1.3 mg/dL [facility] eGFR 76 mL/min/1.73 m2 Normal >=59mL/min /1. 73 m2 [facility] Globulin (S) [Mass/Vol] 3.0 g/dL Normal 1.4 - 4.0 gm/dL [facility] Glucose [Mass/Vol] 132 mg/dL Normal 55 - 199 mg/dL [facility] Potassium [Moles/Vol] 3.9 mmol/L Normal 3.5 - 5.3 mmol/L [facility] Protein [Mass/Vol] 7.4 g/dL Normal 6.0 - 7.8 gm/dL [facility] Sodium [Moles/Vol] 139 mmol/L Normal 135 - 145 mmol/L [facility] Triglyceride [Mass/Vol] 144 mg/dL Normal <=149mg/dL [facility] TSH Qn 0.44 m[IU]/L Normal 0.34 - 5.60 mcIU/mL [facility] Urea nitrogen [Mass/Vol] 11 mg/dL Normal 5 - 21 mg/dL [facility] Urea nitrogen/Creatinine [Mass ratio] 12 mg/mg Normal 10 - 20 [facility] CMPon 06-27-2024 Albumin [Mass/Vol] 4.4 g/dL Normal 3.3-5.0 [facility] Comment on above: Performed By: #### 2 [id number] #### [facility] [address] [place] [address] Albumin/Globulin (S) [Mass conc ratio] 1.5 Normal 1.1-2.2 [facility] Comment on above: Performed By: #### 2 [id number] #### [facility] [address] [place] [address] ALP [Catalytic activity/Vol] 78 Int._Unit/L Normal 21-98 [facility] Comment on above: Performed By: #### 2 [id number] #### [facility] [address] [place] [address] ALT No additional P-5'-P [Catalytic activity/Vol] 12 Int._Unit/L Normal 6-46 [facility] Comment on above: Performed By: #### 2 [id number] #### [facility] [address] [place] [address] Anion gap [Moles/Vol] 10 mmol/L Normal 6-16 [facility] Comment on above: Performed By: #### 2 [id number] #### [facility] [address] [place] [address] AST [Catalytic activity/Vol] 18 Int._Unit/L Normal 5-43 [facility] Comment on above: Performed By: #### 2 [id number] #### [facility] [address] [place] [address] Bilirubin [Mass/Vol] 0.3 mg/dL Normal 0.0-1.1 [facility] Comment on above: Performed By: #### 2 [id number] #### [facility] [address] [place] [address] Calcium [Mass/Vol] 9.6 mg/dL Normal 8.9-11.1 [facility] Comment on above: Performed By: #### 2 [id number] #### [facility] [address] [place] [address] Chloride [Moles/Vol] 106 mmol/L Normal 101-111 [facility] Comment on above: Performed By: #### 2 [id number] #### [facility] [address] [place] [address] CO2 [Moles/Vol] 27 mmol/L Normal 21-31 [facility] Comment on above: Performed By: #### 2 [id number] #### [facility] [address] [place] [address] Creatinine [Mass/Vol] 0.9 mg/dL Normal 0.5-1.3 [facility] Comment on above: Performed By: #### 2 [id number] #### [facility] [address] [place] [address] Globulin (S) [Mass/Vol] 3.0 g/dL Normal 1.4-4.0 [facility] Comment on above: Performed By: #### 2 [id number] #### [facility] [address] [place] [address] Glucose [Mass/Vol] 132 mg/dL Normal 55-199 [facility] Comment on above: Performed By: #### 2 [id number] #### [facility] [address] [place] [address] Potassium [Moles/Vol] 3.9 mmol/L Normal 3.5-5.3 [facility] Comment on above: Performed By: #### 2 [id number] #### [facility] [address] [place] [address] Protein [Mass/Vol] 7.4 g/dL Normal 6.0-7.8 [facility] Comment on above: Performed By: #### 2 [id number] #### [facility] [address] [place] [address] Sodium [Moles/Vol] 139 mmol/L Normal 135-145 [facility] Comment on above: Performed By: #### 2 [id number] #### [facility] [address] [place] [address] Urea nitrogen [Mass/Vol] 11 mg/dL Normal 5-21 [facility] Comment on above: Performed By: #### 2 [id number] #### [facility] [address] [place] [address] Urea nitrogen/Creatinine [Mass ratio] 12 No Units Normal 10-20 [facility] Comment on above: Performed By: #### 2 [id number] #### [facility] [address] [place] [address] Family Medicine Office/Clini c Noteon 06-27-2024 Family Medicine Office/Clinic Note Family Medicine Office/Clinic Note Chief Complaint Wellness Visit HPI Staff Pt is here today for Annual wellness visit. Colonoscopy: 2021 Dexa: 2-3yrs ago Mammo: 03/30/24 Pap: 2022 Last Labs: 02/13/23 ALEX: 1 No concerns at this time. Does not think she needs refills. History of Present Illness pt presents today for wellness visit Review of Systems PHQ Score Initial Depression Screen Score: 0 SCORE Physical Exam Vitals & Measurements T: 36.8 ?C(Oral) HR: 91(Peripheral) RR: 16 BP: 128/84 SpO2: 97% HT: 62 in HT: 158.5 cm WT: 71.9 kg WT: 158.18 lb BMI: 28.62 General: alert, no acute distress ENMT: oral mucosa moist, no pharyngeal erythema or exudate Cardiovascular: regular rate and rhythm, normal peripheral perfusion Respiratory: Lungs CTA, respirations non labored Extremities: no deformity, no trauma Neurological: oriented x 4, LOC appropriate for age, CN II-XII intact, motor strength equal & normal bilaterally, speech normal Assessment/Plan 1. Wellness examination (Z00.00: Encounter for general adult medical examination without abnormal findings) pt presents today for wellness visit. is doing well. will check labs today. she will return for pap in a couple weeks. does not need refills. Ordered: CBC w/ Auto Diff Comprehensive Metabolic Panel Est Preventative 40 to 64 years [address] Lab Specimen Collect 90619 Lipid Panel TSH With T4fr Reflex 2. BMI 28.0-28.9,adult (Z68.28: Body mass index [BMI] 28.0-28.9, adult) BMI education given Ordered: Est Preventative 40 to 64 years [address] Lab Specimen Collect 86636 3. Overweight (E66.3: Overweight) see above Ordered: Est Preventative 40 to 64 years [address]1265 Lab Specimen Collect 69558 4. Smoker (F17.200: Nicotine dependence, unspecified, uncomplicated) consider not smoking Ordered: Est Preventative 40 to 64 years [address] Lab Specimen Collect 85568 Follow-up No qualifying data available Problem List/Past Medical History Ongoing Anxiety GERD (gastroesophageal reflux disease) Hot flashes Hypothyroidism Labyrinthitis Migraines Overweight Smoker Wellness examination Xerosis cutis Historical No qualifying data Procedure/Surgical History Epidural injection of cervical spine using fluoroscopic guidance (03/14/2019), Colonoscopy, Endometrial ablation, Reconstruction of left ankle, Tubal ligation. Medications levothyroxine 88 mcg (0.088 mg) oral capsule, 88 mcg= 1 cap(s), Oral, Daily, 3 refills sertraline 25 mg Tab, 25 mg, Oral, qAM, 3 refills Allergies No Known Medication Allergies Social History Alcohol Current, 1-2 times per week, 03/01/2019 Tobacco Former smoker, quit more than 30 days ago Tobacco Use:. Current vaping or e-cigarette use Smokeless Tobacco Use:. Vaping, 25 year(s). Yes, 06/27/2024 Family History Primary malignant neoplasm of female breast: Mother. Immunizations Vaccine Date Status Comments influenza virus vaccine, inactivated 08/11/2022 Recorded SARS-CoV-2 (COVID-19) [id number] 08/11/2022 Recorded SARSCoV2 mRNA(tozinamer-camryn- sucros) vac 02/19/2022 Recorded influenza virus vaccine, inactivated 09/10/2021 Recorded SARS-CoV-2 (COVID-19) mRNA BNT-162b2 vax 09/10/2021 Recorded 2023-02-12: TPV50 SARS-CoV-2 (COVID-19) mRNA-1273 vaccine 11/21/2020 Recorded SARS-CoV-2 (COVID-19) mRNA-1273 vaccine 10/24/2020 Recorded influenza virus vaccine, inactivated 08/16/2020 Recorded influenza virus vaccine, inactivated 08/25/2019 Recorded influenza virus vaccine, inactivated 07/26/2018 Recorded influenza virus vaccine, inactivated 11/24/2013 Recorded influenza virus vaccine, inactivated 10/19/2012 Recorded Normal [facility] Comment on above: Result Comment: Elec tronically Signed By: Dixie Whittaker\Date and Time Signed: 06/27/24 16:05 EDT HEMATOLOGYOrdered By: SYSTEM SYSTEM on 06-27-2024 Basophils/100 WBC (Bld) 1.2 % Normal 0.0 - 2.0 % [facility] Heme Basophils/Leukocytes Auto (Bld) [Pure # fraction] 0.1 E9/L Normal 0.0 - 0.2 E9/L [facility]e Eosinophils (Bld) [#/Vol] 0.1 E9/L Normal 0.0 - 0.5 E9/L [facility]e Eosinophils/100 WBC (Bld) 1.4 % Normal 0.0 - 8.0 % [facility]e Erythrocyte distribution width (RBC) [Ratio] 17.3 % High 10.9 - 14.2 % [facility] Hematocrit (Bld) [Volume fraction] 38.2 % Normal 34.0 - 46.0 % [facility]e Hemoglobin (Bld) [Mass/Vol] 12.3 g/dL Normal 12.0 - 16.0 gm/dL [facility]e Lymphocytes (Bld) [#/Vol] 2.1 E9/L Normal 1.0 - 4.0 E9/L [facility]e Lymphocytes/100 WBC (Bld) 41.7 % Normal 14.0 - 50.0 % [facility]e MCH (RBC) [Entitic mass] 27.5 pg Normal 27.0 - 34.0 pg [facility] Heme MCHC (RBC) [Mass/Vol] 32.2 g/dL Normal 31.4 - 36.0 gm/dL [facility]e MCV (RBC) [Entitic vol] 85.5 fL Normal 80.0 - 100.0 fL [facility]e Monocytes (Bld) [#/Vol] 0.4 E9/L Normal 0.2 - 1.0 E9/L [facility]e Monocytes/100 WBC (Bld) 7.7 % Normal 4.0 - 14.0 % [facility]e Neutrophils (Bld) [#/Vol] 2.4 E9/L Normal 2.0 - 7.5 E9/L [facility]e Neutrophils/100 WBC (Bld) 48.0 % Normal 36.0 - 75.0 % [facility]e Platelet mean volume (Bld) [Entitic vol] 9.8 fL Normal 6.4 - 10.8 fL [facility]e Platelets (Bld) [#/Vol] 238.0 E9/L Normal 150.0 - 500.0 E9/L [facility]e RBC (Bld) [#/Vol] 4.5 E12/L Normal 4.3 - 5.9 E12/L [facility] WBC corrected for nucl RBC Auto (Bld) [#/Vol] 5.0 E9/L Normal 4.0 - 11.0 E9/L [facility]e Lipid Panelon 06-27-2024 Cholesterol [Mass/Vol] 224 mg/dL High 120-200 [facility] Comment on above: Performed By: #### 2 [id number] #### [facility] [address] [place] [address] Cholesterol in HDL [Mass/Vol] 81 mg/dL Invalid Interpretation Code [facility] Comment on above: Result Comment: '>= 60 LOW RISK' '<= 40 HIGH RISK' Performed By: #### 2 [id number] #### [facility] [address] [place] [address] Cholesterol in LDL [Mass/Vol] 122 mg/dL Normal <=129 [facility] Comment on above: Performed By: #### 2 [id number] #### [facility] [address] [place] [address] Cholesterol in VLDL [Mass/Vol] 29 mg/dL Normal 7-40 [facility] Comment on above: Performed By: #### 2 [id number] #### [facility] [address] [place] [address] Triglyceride [Mass/Vol] 144 mg/dL Normal <=149 [facility] Comment on above: Performed By: #### 2 [id number] #### [facility] [address] [place] [address] TSH With T4fr Reflexon 06-27 TSH Qn 0.44 m[IU]/L Normal 0.34-5.60 [facility] Comment on above: Performed By: #### 1 [id number] #### [facility] [address] [place] [address] eGFRon 06-27-2024 eGFR 76 mL/min/1.73 m2 Normal >=59 [facility] Comment on above: Order Comment: Order added by Discern Expert. Performed By: #### 1 [id number] #### [facility] [address] [place] [address] Outside Mammographyon 2023 Outside Mammography [id number]# 1.00TIFF Normal [facility] CHEMISTRYOrdered By: SYSTEM SYSTEM on 03-31-2023 TSH Qn 0.51 m[IU]/L Normal 0.34 - 5.60 mcIU/mL [facility] CHEMISTRYOrdered By: SYSTEM SYSTEM on 02-13-2023 Albumin [Mass/Vol] 4.2 g/dL Normal 3.3 - 5.0 gm/dL [facility] Albumin/Globulin [Mass ratio] 1.4 {ratio} Normal 1.1 - 2.2 [facility] ALP [Catalytic activity/Vol] 73 [iU]/d Normal 21 - 98 Int._Unit/L [facility] ALT No additional P-5'-P [Catalytic activity/Vol] 13 [iU]/d Normal 6 - 46 Int._Unit/L [facility] Anion gap [Moles/Vol] 14 mmol/L Normal 6 - 16 mEq/L [facility] AST [Catalytic activity/Vol] 18 [iU]/d Normal 5 - 43 Int._Unit/L [facility] Bilirubin [Mass/Vol] 0.4 mg/dL Normal 0.0 - 1 .1 mg/dL [facility] Calcium [Mass/Vol] 9.4 mg/dL Normal 8.9 - 11. 1 mg/dL [facility] Chloride [Moles/Vol] 105 mmol/L Normal 101 - 1 11 mmol/L [facility] Cholesterol [Mass/Vol] 218 mg/dL High 120 - 200 mg/dL [facility] Cholesterol in HDL [Mass/Vol] 74 mg/dL Invalid Interpretation Code [facility] Cholesterol in LDL [Mass/Vol] 136 mg/dL High <=129mg/dL [facility] Cholesterol in VLDL [Mass/Vol] 17 mg/dL Normal 7 - 40 mg/dL [facility] CO2 [Moles/Vol] 24 mmol/L Normal 21 - 31 mmol/L [facility] Creatinine [Mass/Vol] 0.9 mg/dL Normal 0.5 - 1.3 mg/dL [facility] Free T4 [Mass/Vol] 0.93 ng/dL Normal 0.58 - 1. 64 ng/dL [facility] GFR/1.73 sq M.predicted among blacks MDRD (S/P/Bld) [Vol rate/Area] mL/min/1.73 m2 Normal >=59mL/min/1. 73 m2 [facility] Chem S GFR/1.73 sq M.predicted among non-blacks MDRD (S/P/Bld) [Vol rate/Area] mL/min/1.73 m2 Normal >=59mL/min/1. 73 m2 [facility] S Globulin (S) [Mass/Vol] 3.0 g/dL Normal 1.4 - 4.0 gm/dL [facility] Glucose [Mass/Vol] 101 mg/dL Normal 55 - 199 mg/dL [facility] Potassium [Moles/Vol] 4.5 mmol/L Normal 3.5 - 5.3 mmol/L [facility] Protein [Mass/Vol] 7.2 g/dL Normal 6.0 - 7.8 gm/dL [facility] Sodium [Moles/Vol] 138 mmol/L Normal 135 - 145 mmol/L [facility] Triglyceride [Mass/Vol] 84 mg/dL Normal <=149mg/dL [facility] TSH Qn 0.10 m[IU]/L Low 0.34 - 5.60 mcIU/mL [facility] Urea nitrogen [Mass/Vol] 15 mg/dL Normal 5 - 21 mg/dL [facility] Urea nitrogen/Creatinine [Mass ratio] 17 mg/mg Normal 10 - 20 [facility] HEMATOLOGYOrdered By: SYSTEM SYSTEM on 02-13-2023 Basophils/100 WBC (Bld) 1.4 % Normal 0.0 - 2.0 % [facility]eAutoSS Basophils/Leukocytes Auto (Bld) [Pure # fraction] 0.1 E9/L Normal 0.0 - 0.2 E9/L [facility] Eosinophils/100 WBC (Bld) 3.2 % Normal 0.0 - 8.0 % [facility]eAutoSS Eosinophils/Leukocyte s Auto (Bld) [Pure # fraction] 0.2 E9/L Normal 0.0 - 0.5 E9/L [facility]eAutoSS Lymphocytes/100 WBC (Bld) 49.5 % Normal 14.0 - 50.0 % [facility]eAutoSS Lymphocytes/Leukocyte s Auto (Bld) [Pure # fraction] 2.6 E9/L Normal 1.0 - 4.0 E9/L [facility]eAutoSS Monocytes/100 WBC (Bld) 8.0 % Normal 4.0 - 14.0 % [facility]eAutoSS Monocytes/Leukocytes Auto (Bld) [Pure # fraction] 0.4 E9/L Normal 0.2 - 1.0 E9/L [facility]eAutoSS Neutrophils/100 WBC (Bld) 37.9 % Normal 36.0 - 75.0 % [facility]eAutoSS Neutrophils/Leukocyte s Auto (Bld) [Pure # fraction] 2.0 E9/L Normal 2.0 - 7.5 E9/L [facility]SS HEMATOLOGYOrdered By: Radha Vigil on 02-13-2023 Erythrocyte distribution width (RBC) [Ratio] 13.4 % Normal 10.9 - 14.2 % [facility] Hematocrit (Bld) [Volume fraction] 40.5 % Normal 34.0 - 46.0 % [facility] Hemoglobin (Bld) [Mass/Vol] 12.9 g/dL Normal 12.0 - 16.0 gm/dL [facility] MCH (RBC) [Entitic mass] 30.2 pg Normal 27.0 - 34.0 pg [facility] MCHC (RBC) [Mass/Vol] 31.8 g/dL Normal 31.4 - 36.0 gm/dL [facility] MCV (RBC) [Entitic vol] 94.9 fL Normal 80.0 - 100.0 fL [facility]eAutoSS Platelet mean volume (Bld) [Entitic vol] 9.7 fL Normal 6.4 - 10.8 fL [facility] HemeAutoSS Platelets (Bld) [#/Vol] 228.0 E9/L Normal 150.0 - 500.0 E9/L [facility] HemeAutoSS RBC (Bld) [#/Vol] 4.3 E12/L Normal 4.3 - 5.9 E12/L [facility] HemeAutoSS WBC corrected for nucl RBC Auto (Bld) [#/Vol] 5.2 E9/L Normal 4.0 - 11.0 E9/L [facility] HemeAutoSS PAP ACOG PANEL 2: 30 to 65on 10-28-2022 . . Normal [facility] Comment on above: Result Comment: Perf ormed at: WB Performed By: #### [id number] #### [facility] [address] [place] [address] Dr. Dereck Moreno Age Gdln ACOG Testing -64 Normal [facility] Comment on above: Performed By: #### 4 [id number] #### [facility] [address] [address] [address] Dereck Moreno DIAGNOSIS: Comment Normal [facility] Comment on above: Result Comment: NEGA TIVE FOR INTRAEPITHELIAL LESION OR MALIGNANCY. Performed at: WB Performed By: #### 4 [id number] #### [facility] [address] [address] [address] Dereck Moreno HPV Aptima Positive Abnormal Negative [facility] Comment on above: Result Comment: This nucleic acid amplification test detects fourteen high-risk HPV types (16,18,31,33,35,39,45,51,52,56,58,59,66,68) without differentiation. Performed at: =G Performed By: #### 4 [id number] #### [facility] [address] [address] [address] Dereck Moreno HPV Genotype 16 Negative Normal Negative [facility] Comment on above: Performed By: #### 4 [id number] #### [facility] [address] [address] [address] Dereck Moreno HPV Genotype 18,45 Negative Normal Negative [facility] Comment on above: Performed By: #### 4 [id number] #### [facility] [address] [address] [address] Dereck Moreno HPV Genotype Reflex Comment Normal [facility] Comment on above: Result Comment: Brooke liz , see HPV Genotype results. Performed at: WB Performed By: #### 4 [id number] #### [facility] [address] [place] [address] Dr. Dereck Moreno Methodology: CTIM Normal [facility] Comment on above: Result Comment: The Thin Prep(R) Maintenance Service Dispatcher was unable to read this specimen. Therefore a manual review was performed. Performed at: WB Performed By: #### 4 [id number] #### [facility] [address] [place] [address] Dr. Dereck Moreno Note: Comment Normal [facility] Comment on above: Result Comment: The Pap smear is a screening test designed to aid in the detection of premalignant and malignant conditions of the uterine cervix. It is not a diagnostic procedure and should not be used as the sole means of detecting cervical cancer. Both false-positive and false-negative reports do occur. . Performed at: WB Performed By: #### 4 [id number] #### [facility] [address] [place] [address] Dr. Dereck Moreno Performed by: Comment Normal [facility] Comment on above: Result Comment: Bryon Shipley Employee Relations Representative (ASCP) Performed at: WB Performed By: #### 4 [id number] #### [facility] [address] [place] [address] Dr. eDreck Moreno Specimen adequacy: Comment Normal [facility] Comment on above: Result Comment: Sati sfactory for evaluation. Endocervical and/or squamous metaplastic cells (endocervical component) are present. Performed at: WB Performed By: #### 4 [id number] #### [facility] [address] [place] [address] Dr. Dereck Moreno MG MAMM SCREEN 3D ERIC CADon 03-20-2022 MG MAMM SCREEN 3D ERIC CAD Patient: LISHA RAMIREZ Exam Date: 03/20/2022 : 1970 Gender:F Ordering : DR AMARILYS JACOBO . Admission #: [id number] Family : Order #: [id number] CLICK HERE TO VIEW EXAM RADIOLOGY REPORT PROCEDURE: MAMMOGRAM SCREENING 3D BILATERAL CAD COMPARISON: MG MAMM SCREEN ERIC W CAD, 03/15/2020. MG MAMM SCREEN 3D ERIC CAD, 03/19/2021. INDICATIONS: Screening mammography Calculator Name NCI Breast Cancer Risk Assessment Tool 5 Year Breast Cancer Risk 2.30% Lifetime Breast Cancer Risk 18.20% Personal Breast Cancer No Personal Ovarian Cancer No Treatments None Family Cancers Mother with breast cancer at age 57; Grandmother-maternal with breast cancer at age 60. LOCATION: [facility] BREAST COMPOSITION: Heterogeneously dense,which may obscure small masses. FINDINGS: DIAGNOSTIC CATEGORY 1--NEGATIVE. NO CHANGE FROM COMPARISON ASSESSMENT. Scattered benign-appearing calcifications are present. Scattered benign-appearing lymph nodes are present. RIGHT BREAST: No significant suspicious finding. LEFT BREAST: No significant suspicious finding. RECOMMENDATIONS: ROUTINE MAMMOGRAM AND CLINICAL EVALUATION IN 12 MONTHS. PLEASE NOTE: A NORMAL MAMMOGRAM DOES NOT EXCLUDE THE POSSIBILITY OF BREAST CANCER. A CLINICALLY SUSPICIOUS PALPABLE LUMP SHOULD BE BIOPSIED. Dictated by: Lloyd Lin MD on 03/20/2022 at 14:09 Approved by: Lloyd Lin MD on 03/20/2022 at 14:11 Normal [facility] XR DEXA BONE DENSITYon 03-20 XR DEXA BONE DENSITY EXAMINATION: XR DEX A BONE DENSITY, 03/20/2022 1:06 PM EDT HISTORY: Menopause present COMPARISON: None. TECHNIQUE: Dual-energy X-ray absorptiometry (DEXA) bone density study performed for the axial skeleton. FINDINGS: SPINE ANALYSIS: Average bone mineral density is 1.221 g/cm2. T-score (standard deviation relative to young adult mean): 0.3 . HIP ANALYSIS: Lowest bone mineral density is within the right femoral trochanter, 0.753 g/cm2. T-score (standard deviation relative to young adult mean): -0.8 . IMPRESSION: World [employer] Classification: Normal - Low Fracture Risk Electronically authenticated by: TREVOR YUSUF Date: 2022-03-20 13:56 Normal [facility] CBC AUTO DIFFon 12-17-2021 BASO # 0.1 103/ul Normal 0.0-0.1 [facility] Comment on above: Performed By: #### C BC #### [facility] [address] [address] [address] Dereck Moreno Basophils/100 WBC (Bld) 1.0 % Normal 0.2-2.0 [facility] Comment on above: Performed By: #### C BC #### [facility] [address] [place] [address] Dr. Dereck Moreno EO # 0.1 103/ul Normal 0.0-0.7 [facility] Comment on above: Performed By: #### C BC #### [facility] [address] [place] [address] Dr. Dereck Moreno Eosinophils/100 WBC (Bld) 1.2 % Normal 0.9-7.0 [facility] Comment on above: Performed By: #### C BC #### [facility] [address] [place] [address] Dr. Dereck Moreno Erythrocyte distribution width (RBC) [Ratio] 13.7 % Normal 11.0-15.0 [facility] Comment on above: Performed By: #### C BC #### [facility] [address] [place] [address] Dr. Dereck Moreno Hematocrit (Bld) [Volume fraction] 36.9 % Normal 36.0-48.0 [facility] Comment on above: Performed By: #### C BC #### [facility] [address] [place] [address] Dr. Dereck Moreno Hemoglobin (Bld) [Mass/Vol] 12.2 g/dL Normal 12.0-16.0 [facility] Comment on above: Performed By: #### C BC #### [facility] [address] [place] [address] Dr. Dereck Moreno IG # 0.01 10e3/ul Normal 0.00-0.03 [facility] Comment on above: Performed By: #### C BC #### [facility] [address] [place] [address] Dr. Dereck Moreno IG % 0.2 % Normal 0.0-0.5 [facility] Comment on above: Performed By: #### C BC #### [facility] [address] [place] [address] Dr. Dereck Moreno LYMPH # 2.6 103/ul Normal 1.2-3.8 [facility] Comment on above: Performed By: #### C BC #### [facility] [address] [place] [address] Dr. Dereck Moreno Lymphocytes/100 WBC (Bld) 50.2 % Normal 20.5-60.0 [facility] Comment on above: Performed By: #### C BC #### [facility] [address] [place] [address] Dr. Dereck Moreno MANUAL DIFF REQ NO Normal [facility] Comment on above: Performed By: #### C BC #### [facility] [address] [place] [address] Dr. Dereck Moreno MCH (RBC) [Entitic mass] 29.9 pg Normal 26.7-34.0 [facility] Comment on above: Performed By: #### C BC #### [facility] [address] [place] [address] Dr. Dereck Moreno MCHC (RBC) [Mass/Vol] 33.1 g/dL Normal 29.9-35.2 [facility] Comment on above: Performed By: #### C BC #### [facility] [address] [place] [address] Dr. Dereck Moreno MCV (RBC) [Entitic vol] 90.4 fL Normal 81.0-99.0 [facility] Comment on above: Performed By: #### C BC #### [facility] [address] [place] [address] Dr. Dereck Moreno MONO # 0.4 103/ul Normal 0.3-0.8 [facility] Comment on above: Performed By: #### C BC #### [facility] [address] [place] [address] Dr. Dereck Moreno Monocytes/100 WBC (Bld) 7.8 % Normal 1.7-12.0 [facility] Comment on above: Performed By: #### C BC #### [facility] [address] [address] [address] Dereck Moreno NEUT # 2.1 103/ul Normal 1.4-6.5 [facility] Comment on above: Performed By: #### C BC #### [facility] [address] [address] [address] Dereck Moreno Neutrophils/100 WBC (Bld) 39.6 % Critically low 43.0-75.0 [facility] Comment on above: Performed By: #### C BC #### [facility] [address] [address] [address] Dereck Moreno Platelet mean volume (Bld) [Entitic vol] 10.3 fL Normal 9.5-13.5 [facility] Comment on above: Performed By: #### C BC #### [facility] [address] [place] [address] Dr. Dereck Moreno PLT 226 103/ul Normal 150-450 [facility] Comment on above: Performed By: #### C BC #### [facility] [address] [place] [address] Dr. Dereck Moreno RBC 4.08 106/ul Critically low 4.20-5.40 [facility] Comment on above: Performed By: #### C BC #### [facility] [address] [place] [address] Dr. Dereck Moreno WBC 5.2 103/ul Normal 4.0-11.0 [facility] Comment on above: Performed By: #### C BC #### [facility] [address] [place] [address] Dr. Dereck Moreno FREE T3on 12-17-2021 FREE T3 2.34 pg/mlL Critically low 2.77-5.27 [facility] Comment on above: Performed By: #### T SH, CMP, FT3 #### [facility] [address] [address] [address] Dereck Moreno FREE T4on 12-17-2021 Free T4 [Mass/Vol] 1.20 ng/dL Normal 0.78-2.19 [facility] Comment on above: Performed By: #### F T4 #### [facility] [address] [address] [address] Dereck Moreno PROF 14(COMP METB)on 022 Albumin [Mass/Vol] 4.0 g/dL Normal 3.5-5.0 [facility] Comment on above: Performed By: #### T WILMA CMP, FT3 #### [facility] [address] [place] [address] Dr. Dereck Moreno Albumin/Globulin [Mass ratio] 1.1 {ratio} Normal [facility] Comment on above: Performed By: #### T WILMA CMP, FT3 #### [facility] [address] [place] [address] Dr. Dereck Moreno ALP [Catalytic activity/Vol] 83 U/L Normal 38-126 [facility] Comment on above: Performed By: #### T WILMA CMP, FT3 #### [facility] [address] [place] [address] Dr. Dereck Moreno ALT [Catalytic activity/Vol] 20 U/L Normal 9-52 [facility] Comment on above: Performed By: #### T WILMA CMP, FT3 #### [facility] [address] [place] [address] Dr. Dereck Moreno Anion gap [Moles/Vol] 9.6 mmol/L Normal [facility] Comment on above: Performed By: #### T WILMA CMP, FT3 #### [facility] [address] [place] [address] Dr. Dereck Moreno AST [Catalytic activity/Vol] 17 U/L Normal 14-36 [facility] Comment on above: Performed By: #### T WILMA CMP, FT3 #### [facility] [address] [place] [address] Dr. Dereck Moreno Bilirubin [Mass/Vol] 0.3 mg/dL Normal 0.2-1.3 [facility] Comment on above: Performed By: #### T WILMA CMP, FT3 #### [facility] [address] [place] [address] Dr. Dereck Moreno Calcium [Mass/Vol] 9.6 mg/dL Normal 8.4-10.2 [facility] Comment on above: Performed By: #### T WILMA CMP, FT3 #### [facility] [address] [place] [address] Dr. Dereck Moreno Chloride [Moles/Vol] 104 mmol/L Normal 98-107 [facility] Comment on above: Performed By: #### T WILMA CMP, FT3 #### [facility] [address] [place] [address] Dr. Dereck Moreno CO2 [Moles/Vol] 29.2 mmol/L Normal 22.0-30.0 [facility] Comment on above: Performed By: #### T WILMA CMP, FT3 #### [facility] [address] [place] [address] Dr. Dereck Moreno Creatinine [Mass/Vol] 0.84 mg/dL Normal 0.52-1.04 The [facility] Comment on above: Performed By: #### T WILMA CMP, FT3 #### [facility] [address] [place] [address] Dr. Dereck Moreno EGFR-AF HUNGARIAN >60 Normal >=60 [facility] Comment on above: Performed By: #### T WILMA CMP, FT3 #### [facility] [address] [place] [address] Dr. Dereck Moreno EGFR-NON AF HUNGARIAN >60 Normal >=60 The [facility] Comment on above: Performed By: #### T WILMA CMP, FT3 #### [facility] [address] [place] [address] Dr. Dereck Moreno Globulin (S) [Mass/Vol] 3.6 g/dL Normal [facility] Comment on above: Performed By: #### T WILMA CMP, FT3 #### [facility] [address] [place] [address] Dr. Dereck Moreno Glucose [Mass/Vol] 76 mg/dL Normal 74-106 [facility] Comment on above: Performed By: #### T WILMA CMP, FT3 #### [facility] [address] [place] [address] Dr. Dereck Moreno Potassium [Moles/Vol] 3.8 mmol/L Normal 3.4-5.0 [facility] Comment on above: Performed By: #### T SH, CMP, FT3 #### [facility] [address] [place] [address] Dr. Dereck Moreno Protein [Mass/Vol] 7.6 g/dL Normal 6.1-8.2 [facility] Comment on above: Performed By: #### T SH, CMP, FT3 #### [facility] [address] [place] [address] Dr. Dereck Moreno Sodium [Moles/Vol] 139 mmol/L Normal 137-145 [facility] Comment on above: Performed By: #### T SH, CMP, FT3 #### [facility] [address] [place] [address] Dr. Dereck Moreno Urea nitrogen [Mass/Vol] 17.0 mg/dL Normal 7.0-17.0 [facility] Comment on above: Performed By: #### T SH, CMP, FT3 #### [facility] [address] [place] [address] Dr. Dereck Moreno Urea nitrogen/Creatinine [Mass ratio] 20.2 mg/mg Normal [facility] Comment on above: Performed By: #### T SH, CMP, FT3 #### [facility] [address] [place] [address] Dr. Dereck Moreno TSHon 12-17-2021 TSH 0.721 uIU/mL Normal 0.470-4.[address] [facility] Comment on above: Performed By: #### T SH, CMP, FT3 #### [facility] [address] [place] [address] Dr. Dereck Moreno TSH RANGE SEE BELOW Normal [facility] Comment on above: Result Comment: <0.3 4 UIU/ml HYPERTHYROID 0.34-5.60 UIU/ml EUTHYROID >5.60 UIU/ml HYPOTHYROID Performed By: #### T SH, CMP, FT3 #### [facility] [address] [place] [address] Dr. 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 Dixie L Heidi [place] Start: 10-11-2024 End: 10-11-2024 ambulatory Dixie L Heidi Facility:[facility] Start: 10-11-2024 End: 10-11-2024 Lab Drop off Dixie L Heidi [facility] Start: 10-11-2024 End: 10-11-2024 ambulatory Dixie L Heidi Facility:[facility] [place] Start: 08-02-2024 End: 08-02-2024 ambulatory Dixie L Heidi Facility:[facility] [place] Start: 07-05-2024 End: 07-05-2024 ambulatory Dixie L Heidi Facility:[facility] Start: 07-05-2024 End: 07-05-2024 Lab Drop off Dixie L Heidi [facility] Start: 07-05-2024 End: 07-05-2024 ambulatory Dixie L Heidi Facility:[facility] [place] Start: 06-27-2024 End: 06-27-2024 Lab Drop off Dixie L Heidi [facility] Start: 06-27-2024 End: 06-27-2024 ambulatory Dixie L Heidi Facility:[facility] Start: 03-31-2023 End: 03-31-2023 Lab Drop off Dixie L Heidi [facility] Start: 02-13-2023 End: 02-13-2023 Lab Drop off Dixie L Heidi [facility] Start: 10-16-2022 End: 10-16-[address] AMARILYS JACOBO Facility:[facility] Start: 03-20-2022 End: 03-21-[address] AMARILYS JACOBO Facility:[facility] Start: 12-17-2021 End: 12-18-[address] SWETHA MATTHEWS Facility:[facility] Start: 05-31-2021 End: 05-31-2021 ambulatory Lloyd Watts Facility:[facility] Procedures Date Procedure Procedure Detail Performing Clinician Start: 03-14-2019 Epidural injection o f cervical spine using fluoroscopic guidance Dixie Heidi Comment on above: C7-T1 95% relief sta rting one week after procedure. Pt. still reports 95% relief today. Colonoscopy Dixie Heidi Comment on above: 05/2021 normal Endometrial ablation Dixie Sc hwab Ligation of fallopian tube J tana Heidi Reconstruction of le ft ankle Dixie Heidi Comment on above: 2000 Immunizations Immunization Date Immunization Notes Care Provider [facility] 08-16-2024 influenza virus vaccine, unspecified formulation Dixie Heidi [facility] 08-16-2024 zoster vaccine recombinant Dixie Heidi [facility] 09-02-2023 influenza virus vaccine, unspecified formulation Dixie Heidi [facility] 08-11-2022 influenza virus vaccine, unspecified formulation Dixie Heidi [facility] 08-11-2022 SARS-CoV-2 (COVID-19 ) [id number] Dixie Heidi [facility] 02-19-2022 SARS-CoV-2 mRNA (hvnuntbsfej-sbno-gsrpj se) vaccine Dixie Heidi [facility] 09-10-2021 influenza virus vaccine, unspecified formulation Dixie Heidi [facility] 09-10-2021 SARS-CoV-2 (COVID-19 ) mRNA BNT-162b2 vax Dixie Heidi [facility] Comment on above: Result Comment: 2022: [id number] 11-21-2020 SARS-CoV-2 (COVID-19 ) mRNA-1273 vaccine Dixie Heidi [facility] 10-24-2020 SARS-CoV-2 (COVID-19 ) mRNA-1273 vaccine Dixie Heidi [facility] 08-16-2020 influenza virus vaccine, unspecified formulation Dixie Heidi [facility] 08-25-2019 influenza virus vaccine, unspecified formulation Dixie Heidi [facility] 07-26-2018 influenza virus vaccine, unspecified formulation Dixie Heidi [facility] 11-24-2013 influenza virus vaccine, unspecified formulation Dixie Heidi [facility] 10-19-2012 influenza virus vaccine, unspecified formulation Dixie Heidi [facility] Payers Date Payer Category Payer Self-pay [id number] 2024 Private Health Insurance [id number] 2024 Unknown [id number] 2021 Self-pay [id number] 2021 Unknown [id number] 1969 Unknown [id number] [id number] 1969 Unknown [id number] 2.16.840.1.735012.3.579.2.593 1969 Unknown [id number] 2.16.840.1.058333.3.579.2.593 1969 Unknown [id number] 2.16.840.1.533430.3.579.2.727 1969 Unknown [id number] 2.16.840.1.750334.3.579.2.727 1969 Unknown [id number] 2.16.840.1.571720.3.579.2.727 1969 Unknown [id number] 2.16.840.1.367299.3.579.2.727 1969 Unknown [id number] 2.16.840.1.300389.3.579.2.727 1969 Unknown [id number] 2.16.840.1.974897.3.579.2.727 1969 Unknown [id number] 2.16.840.1.068526.3.579.2.727 1969 Unknown [id number] 2.16.840.1.510278.3.579.2.727 1969 Unknown [id number] 2.16.840.1.256209.3.579.2.727 1969 Unknown [id number] 2.16.840.1.726433.3.579.2.727 1969 Unknown [id number] 2.16.840.1.489141.3.579.2.727 1959 Unknown [id number] 1959 Unknown [id number] Medicaid [place] Ad[employer]age [id number] Unknown [id number] [id number] Social History Date Type Detail Facility Start: 02-12-2023 End: 04-13-2025 Tobacco smoking status Ex-smoker (finding) [facility] Sex Assigned At Female [facility] Start: 1970 Sex Assigned At Female [facility] Sexual Orientation [facility] Start: 05-17-2014 Sex Female (finding) [facility] Evaluation + Plan note 04-13-2025 Note Date & Type Note Facility 04-13-2025 Evaluation + Plan note Diagnostic Tests PendingPAP [id number] w/ HPV and Genotype rflx 04/13/25 [facility] Evaluation + Plan note 10-11-2024 Note Date & Type Note Facility 10-11-2024 Evaluation + Plan note Diagnostic Tests PendingPAP [id number] w/ HPV and Genotype rflx 10/11/24 [facility] Evaluation + Plan note 07-05-2024 Note Date & Type Note Facility 07-05-2024 Evaluation + Plan note Diagnostic Tests PendingPAP 560554 w/ HPV and Genotype rflx 07/05/24 [facility] Evaluation + Plan note 02-13-2023 Note Date & Type Note Facility 02-13-2023 Evaluation + Plan note Diagnostic Tests PendingT3 Free 02/13/23 [facility] Evaluation + Plan note Note Date & Type Note Facility Evaluation + Plan note Future Appointments Appointment Date:07/05/2024 11:20:00 AM Scheduled Provider:Dixie Whittaker Location:[facility] Appointment Type: Open [facility] Evaluation note Note Date & Type Note Facility Evaluation note No assessment information availa [facility] Work Phone: Hospital course Narrative Note Date & Type Note Facility Hospital course Narrative No data available for this section [facility] Hospital Discharge instructions Note Date & Type Note Facility Hospital Discharge instructions No data available for this section [facility] Progress note Note Date & Type Note Facility Progress note No data available for this section [facility] Summary Purpose Family History No Family History Records Found Relationship Condition Age at Onset Recorded Date/T kendall grandparent Malignant neoplasm of breast Unknown Not Specified Malignant neoplasm of breast Unknown grandparent Malignant neoplasm of colon Unknown Advance Directives No Advanced Directives Records FoundNo Advanced Directives Records FoundNo Advanced Directives Records FoundNo Advanced Directives Records FoundNo Advanced Directives Records FoundNo Advanced Directives Records FoundNo Advanced Directives Records FoundNo Advanced Directives Records FoundNo Advanced Directives Records FoundNo Advanced Directives Records FoundNo Advanced Directives Records FoundNo Advanced Directives Records Found Additional Source Comments INFORMATION SOURCE (unrecogn ized section and content) DATE CREATED AUTHOR 10/29/2022 [facility] DATE CREATED AUTHOR AUTHOR'S ORGANIZ ATION 07/04/2023 [facility] DATE CREATED AUTHOR AUTHOR'S ORGANIZ ATION [facility] DATE CREATED AUTHOR AUTHOR'S ORGANIZ ATION 07/06/2024 Glez [place] [facility] DATE CREATED AUTHOR AUTHOR'S ORGANIZ ATION 07/07/2024 Glez Shiv [facility] DATE CREATED AUTHOR AUTHOR'S ORGANIZ ATION 07/10/2024 Glez [place] [facility] DATE CREATED AUTHOR AUTHOR'S ORGANIZ ATION 10/18/2024 [facility] DATE CREATED AUTHOR AUTHOR'S ORGANIZ ATION 04/16/2025 Clive [place] [facility] DATE CREATED AUTHOR AUTHOR'S ORGANIZ ATION 04/21/2025 [facility] Patient Care team informatio n (unrecognized section and content) Personnel Name: SWETHA MATTHEWS MD Address: Address: [address] [place], [place] [id number] [address] Personnel Name: SWETHA MATTHEWS MD Address: Address: [address] [place], [place] [id number] [address] Personnel Name: Heidi SEWING MACHINE REPAIRER, Dixie L Address: Address: [address] [place] [address]- Personnel Name: Dixie Whittaker Address: Address: [address] [place] [address]- Personnel Name: Dixie Whittaker Address: Address: [address] [place] [address]- Personnel Name: Dixie Whittaker Address: [address] [place] [address]- [employer]: Goals (unrecognized section and content) Goals may be documented in a n alternate section FOR RECORDS PERTAINING TO PATIENTS WHO ARE OR HAVE BEEN ENROLLED IN A CHEMICAL DEPENDENCY/SUBSTANCEABUSE PROGRAM, SOME INFORMATION MAY BE OMITTED. This clinical summary was aggregated from multiple sources. Caution should be exercised in using it in the provision of clinical care. This summary normalizes information from multiple sources, and as a consequence, information in this document may materially change the coding, format and clinical context of patient data. In addition, data may be omitted in some cases. CLINICAL DECISIONS SHOULD BE BASED ON THE PRIMARY CLINICAL RECORDS. [facility] [employer] [facility]. provides no warranty or guarantee of the accuracy or completeness of information in this document.
== END 2025-05-04 13:07 | disposition home or self-care (01) ==
LOC: MAMMO 13:06
PROVIDERS: PCP Nurse Practitioner; Visit Provider Nurse Practitioner
DX: Z12.31 Encounter for screening mammogram for malignant neoplasm of breast (principal); Z80.3 Family history of malignant neoplasm of breast
CPT/HCPCS: 77063; 77067